=== PATIENT | female | born 1945 | race Caucasian/White ===

== ENCOUNTER → 2020-06-03 | Day surgery (SDC) | payer MEDICARE ==
[~2020-06-03] MED LIST: BELBUCA75 MCG BU; BIOTIN10000 MC1 PO; BUTRANS1 EAC3 TD; CALCIUM600 MG PO; CBD OIL PO; DAILY FIBER0.52 GM PO; DULOXETINE HCL30 MG PO; FISH OIL 1,2001 EAC5 PO; GABAPENTIN300 MG PO; HYDROCODON-ACE1 EAC4 PO; LEVOTHYROXINE50 MCG PO; LIDOCAINE 5% P1 EACH TOP; LIDOCAINE30 G1 TOP; LIOTHYRONINE SO5 MCG PO; LISINOPRIL 10MG10 MG PO; MELATONIN10 MG PO; METOPROLOL SUCC25 MG PO; NORCO 5-325 TA1 EAC1 PO; NORCO 5-325 TA1 EACH PO; OMEPRAZOLE10 MG PO; PERCOCET 5-3251 EACH PO; SELENIUM200 MCG PO; TRAMADOL HCL50 MG PO; TURMERIC500 M1 PO; UNITHROID50 MCG PO; VITAMIN B-1250 MG PO; VITAMIN B-125000 MC2 PO; VITAMIN D35000 UNI1 PO
== END | disposition home or self-care (01) ==
LOC: FAS 05-13 09:45
DX: K31.89 Other diseases of stomach and duodenum (principal); K44.9 Diaphragmatic hernia without obstruction or gangrene; K57.30 Diverticulosis of large intestine without perforation or abscess without bleeding; K64.4 Residual hemorrhoidal skin tags; R63.4 Abnormal weight loss; I12.9 Hypertensive chronic kidney disease with stage 1 through stage 4 chronic kidney disease, or unspecified chronic kidney disease; N18.30 Chronic kidney disease, stage 3 unspecified; F41.9 Anxiety disorder, unspecified; E78.00 Pure hypercholesterolemia, unspecified; K21.9 Gastro-esophageal reflux disease without esophagitis; E03.9 Hypothyroidism, unspecified; Z87.891 Personal history of nicotine dependence; Z68.27 Body mass index [BMI] 27.0-27.9, adult; Z98.890 Other specified postprocedural states; Z88.2 Allergy status to sulfonamides; Z88.1 Allergy status to other antibiotic agents; Z88.8 Allergy status to other drugs, medicaments and biological substances; Z91.013 Allergy to seafood; Z91.018 Allergy to other foods; Z79.899 Other long term (current) drug therapy
CPT/HCPCS: 88305; J2704; J7120